=== PATIENT | male | born 1970 | race Caucasian/White ===

== ENCOUNTER 2020-12-21 16:26 | Emergency (ER) | payer OTHER ==
[2020-12-21] MEDS ORDERED: DICLOFENAC SODI75 MG PO (17:35)
== END 2020-12-21 17:40 | disposition home or self-care (01) ==
LOC: FER 16:26
DX: S39.012A Strain of muscle, fascia and tendon of lower back, initial encounter (principal); S05.02XA Injury of conjunctiva and corneal abrasion without foreign body, left eye, initial encounter; J44.9 Chronic obstructive pulmonary disease, unspecified; F17.210 Nicotine dependence, cigarettes, uncomplicated; Z86.711 Personal history of pulmonary embolism; Z88.5 Allergy status to narcotic agent; Z79.899 Other long term (current) drug therapy; V49.40XA Driver injured in collision with unspecified motor vehicles in traffic accident, initial encounter; Y92.410 Unspecified street and highway as the place of occurrence of the external cause
CPT/HCPCS: 72170

== ENCOUNTER 2021-01-10 04:29 | Emergency (ER) | payer OTHER ==
[~2021-01-10 04:29] MED LIST: DICLOFENAC SODI75 MG PO
[2021-01-10 05:20] LABS: BASOPHIL 0.4 % (0-2); EOSINOPHIL 2.5 % (0-5); HCT 42.9 % (42.0-52.0); HGB 14.1 g/dl (13.2-18.0); LYMPHOCYTE 18.4 % (15-48); MCH 30.8 pg (25.0-31.0); MCHC 32.9 g/dL (32.0-36.0); MCV 93.7 fL (78.0-100.0); MONOCYTE 9.7 % (0-12); MPV 8.3 fL (6.0-9.5); NEUTROPHIL 68.7 % (41-80); NRBC 0; PLT 258 K/uL (150-400); RBC 4.58 M/uL (4.70-6.00); RDW 12.3 % (11.5-14.0); WBC 6.8 K/uL (4.0-10.5)
[2021-01-10 06:12] LABS: ALBUMIN 4.3 g/dL (3.4-5.0); ALKALINE PHOSHATASE 71 U/L (46-116); ALT 14 U/L (16-63); AST 11 U/L (15-37); BILIRUBIN - TOTAL 0.2 mg/dL (0.2-1.0); BUN <1 mg/dL (7-18); CHLORIDE 105 mmol/L (98-107); CO2 (BICARBONATE) 28 mmol/L (21-32); GLOBULIN (CALCULATION) 3.7 g/dL; GLUCOSE 102 mg/dL (74-106)
== END 2021-01-10 06:00 | disposition left against medical advice (07) ==
LOC: FER 04:29
PROVIDERS: Emergency Medicine
DX: R07.89 Other chest pain (principal); Z53.8 Procedure and treatment not carried out for other reasons
CPT/HCPCS: 36415; 80053; 84484; 85025; 85379; 93005